=== PATIENT | male | born 1970 | race Caucasian/White ===

== ENCOUNTER 2021-03-29 07:41 | Day surgery (SDC) | payer OTHER ==
[~2021-03-29] VITALS: Ht 177.8 cm; Wt 89.4 kg
[~2021-03-29 07:41] MED LIST: OMEP20ER
--- NOTE | 2021-03-29 09:27 | NUR ---
03/29/21 0927 Myron Greenberg 0.15MG EPI ADDED TO 30ML 0.5% MARCAINE TO ACHIEVE SOLUTION OF 0.5% MARCAINE WITH EPI 1:200,000.
== END 2021-03-29 10:34 | disposition home or self-care (01) ==
LOC: ORSCSDS 07:41
PROVIDERS: Podiatrist Foot & Ankle Surgery
PROC: 0QSQ0ZZ Reposition Right Toe Phalanx, Open Approach (ICD-10-PCS; principal; 2021-03-29 09:00)
PROC: 0QSP0ZZ Reposition Left Metatarsal, Open Approach (ICD-10-PCS; principal; 2021-03-29 09:00)
PROC: 0QBP0ZZ Excision of Left Metatarsal, Open Approach (ICD-10-PCS; principal; 2021-03-29 09:00)
PROC: 0QSR0ZZ Reposition Left Toe Phalanx, Open Approach (ICD-10-PCS; principal; 2021-03-29 09:00)
PROC: 0QSN0ZZ Reposition Right Metatarsal, Open Approach (ICD-10-PCS; principal; 2021-03-29 09:00)
PROC: 0QBN0ZZ Excision of Right Metatarsal, Open Approach (ICD-10-PCS; principal; 2021-03-29 09:00)
DX: M21.612 Bunion of left foot (principal); M21.611 Bunion of right foot; K21.9 Gastro-esophageal reflux disease without esophagitis; Z79.899 Other long term (current) drug therapy
CPT/HCPCS: J0171; J0690; J2001; J2250; J2704; J3010; J7120